=== PATIENT | female | born 1950 | race Caucasian/White ===

== ENCOUNTER → 2018-03-08 | Outpatient (CLI) | payer MEDICARE, BC ==
[~2018-03-08] MED LIST: ACID REDUCER10 MG PO; TRAMADOL HCL50 MG PO
== END | disposition home or self-care (01) ==
LOC: CDC 10:27
DX: Z01.810 Encounter for preprocedural cardiovascular examination (principal); S52.531A Colles' fracture of right radius, initial encounter for closed fracture; M25.531 Pain in right wrist
CPT/HCPCS: 93000

== ENCOUNTER 2018-03-12 09:44 | Day surgery (SDC) | payer OTHER, BC ==
[~2018-03-12] VITALS: Ht 170.2 cm; Wt 73.9 kg
[2018-03-12 10:27] VITALS: BP 140/93
[2018-03-12 17:15] VITALS: BP 135/84
[2018-03-12 18:25] VITALS: BP 167/82
== END 2018-03-12 19:00 | disposition home or self-care (01) ==
LOC: SDC
PROC: 0PSH04Z Reposition Right Radius with Internal Fixation Device, Open Approach (ICD-10-PCS; principal; 2018-03-12)
DX: S52.531A Colles' fracture of right radius, initial encounter for closed fracture (principal); K21.9 Gastro-esophageal reflux disease without esophagitis; W17.89XA Other fall from one level to another, initial encounter
CPT/HCPCS: 73100; 76000; C1713; J0690; J1170; J1885; J2250; J2405; J2765; J3010; S0020